=== PATIENT | female | born 1950 | race Caucasian/White ===

== ENCOUNTER → 2016-04-20 | Outpatient (CLI) | payer BC ==
--- NOTE | 2016-04-20 14:13 | MA ---
Diagnostic Digital Left Mammography Clinical History: 65-year-old female whose mother had breast cancer at age 69. The patient had a prio r remote left breast lumpectomy in the remote past, and presents for six-month reevaluation of BI-RAD S Category 3 findings. Technique: Digital CC, MLO and exaggerated craniocaudal views of the left breast, as well as spot com pression MLO and craniocaudal views were submitted and compared to previous studies dated October 01, September 19, 2015, and July 31, 2014. More remote studies from [place] are not available for comparis on. A curvilinear marker has been placed over the benign lumpectomy site in the superior left breast. Additionally, this examination was processed by the [employer] computer-aided detection system. Breast Density: Type C. CAD Evaluation: Reviewed. Findings: The fibroglandular pattern is stable, with no focal neodensity or progressive architectural change. There is some persistent postoperative fibrosis in the superior left breast, which is stable -to-slightly less conspicuous, and has an appearance similar to a study in 2014. There are no new agustin picious clustered microcalcifications. Benign-appearing left axillary lymph nodes are seen. Dr. Jesús Chatterjee has also reviewed this case, and concurs with the findings. The patient should return i n September 2016 for routine bilateral screening mammography, unless otherwise clinically indicated. Impression: Continued stability of BI-RADS Category 3 findings. Recommendation: Routine annual mammographic screening in September 2016. The patient should return in [facility].
== END ==
LOC: CIMAGING 13:05
PROVIDERS: ATTEND Nurse Practitioner
DX: Z12.39 Encounter for other screening for malignant neoplasm of breast (principal); Z80.3 Family history of malignant neoplasm of breast
CPT/HCPCS: G0206

== ENCOUNTER → 2016-06-04 | Outpatient (CLI) | payer BC | LOC: CIMAGING 11:59 | PROVIDERS: ATTEND Nurse Practitioner | DX: M19.011 Primary osteoarthritis, right shoulder (principal) | CPT/HCPCS: 73030-PO ==

== ENCOUNTER → 2016-10-20 | Outpatient (CLI) | payer BC | LOC: CIMAGING 08:37 | PROVIDERS: ATTEND Nurse Practitioner | DX: Z12.31 Encounter for screening mammogram for malignant neoplasm of breast (principal); Z80.3 Family history of malignant neoplasm of breast | CPT/HCPCS: G0202 ==

== ENCOUNTER 2017-06-19 08:18 | Emergency (ER) | payer BC ==
[2017-06-19 08:26] VITALS: BP 164/101
--- NOTE | 2017-06-19 08:45 | EDPHY ---
HPI/HX/ROS/PE/MDM Narrative: CHIEF COMPLAINT: Rash HPI: The patient is a 66-year-old female with a history of scleroderma. She was hospitalized approximately 1 week ago at [facility] for an episode of atrial fibrillation. She tells me that this atrial fibrillation was apparently quite refractory and she underwent amiodarone bolus and drip followed by electrical cardioversion and at least 1 other cardiac medication that she cannot remember the name of. During her hospitalization, shortly after taking an oral version of amiodarone, she developed a pruritic rash on her chest and arms. She was kept in the hospital an additional day and told this was likely an allergic reaction to amiodarone. She was switched to Multaq which she completed a one-week course of ending yesterday. She was also started on Eliquis which she has been compliant with. She presents the emergency department today because her rash appears to have gotten worse over the last 24 hr and now involves her legs. She denies any mucous membrane involvement, denies difficulty breathing, denies fever or other symptoms. REVIEW OF SYSTEMS: Aside from elements discussed in the HPI, a comprehensive 10-point review of systems was reviewed and is negative. PMH: Includes scleroderma, atrial fibrillation SOCIAL HISTORY: Primary physician is Dr. Joshua Chan. Patient denies drug or alcohol abuse. PHYSICAL EXAM: General:Patient is alert, in no acute distress. ENT:Eyes are normal to inspection. ENT inspection normal. Neck: Normal inspection. Full range of motion. Respiratory:No respiratory distress. Breath sounds normal bilaterally. Back: Normal to inspection. No tenderness to palpation. Skin: A fine erythematous rash is present on the torso, bilateral arms and legs. There is no mucous membrane involvement. It does not involve the palms or soles. There are no discrete urticarial lesions. There are no purpura nor ecchymoses. No petechiae noted. Zapata are noted on the back and chest consistent with cardioversion pads. Rash does not appear particularly worse in these areas. Extremities: Normal appearance. Full range of motion. Neuro: Oriented x3. Normal motor function. Normal sensory function. MDM: This patient presents with a pruritic diffuse fine rash consistent with an allergic reaction. There are no signs of anaphylaxis or airway involvement. There are no signs of hematologic disorder. The etiology of the patient's likely allergic reaction is very difficult to ascertain in as the patient underwent numerous new medications and was hospitalized with a variety of new potential exposures. The fact that it continues to worsen suggests to me that it is either related to amiodarone that was possibly injected subcutaneously and still present in her system or potentially a non medication related allergic exposure. Is also possible that this represents an adverse reaction rather than official allergic reaction. In any event, I cautioned the patient about altering her medication regimen given the fact that her primary medical team is not present. I recommended that she continue her current medications and we will try a short burst of prednisone to see if this alleviates her rash. I strongly recommended she follow up with her primary doctor to ensure that there is single captain of her medical care. We discussed strict return precautions. The patient understands that the prednisone may or may not help with her rash. General Time Seen by Provider: 06/19/17 08:22 Initial Vital Signs: Initial Vital Signs Temperature (C) 37.1 C 06/19/17 08:22 Heart Rate 75 06/19/17 08:22 Respiratory Rate 16 06/19/17 08:22 Blood Pressure 164/101 H 06/19/17 08:22 O2 Sat (%) 97 06/19/17 08:22 O2 Delivery Mode Room Air Allergies/Adverse Reactions: amiodarone Allergy (Verified 06/19/17 08:25) Pt reports rash Home Medications: Medication Instructions Recorded Crestor 06/19/17 Eliquis 06/19/17 Singulair 06/19/17 Synthroid 06/19/17 predniSONE 60 mg PO DAILY 5 Days tab 06/19/17 Departure - Departure Disposition: Home, Routine, Self-Care Clinical Impression: Allergic reaction, Rash Condition: Good Instructions: Prednisone (By mouth), Urticaria (ED) Additional Instructions: Return to the ED for worsening rash, particularly involvement of your face, mucous membranes or airway. OK to use [id number] Benadryl or other allery medications as well as hydrocortisone cream. Follow-up with your primary physician on Wednesday. Referrals: NONE *PRIMARY CARE P,. [Primary Care Provider] - As per Instructions Prescriptions: predniSONE 60 mg PO DAILY 5 Days tab
== END 2017-06-19 08:49 | disposition home or self-care (01) ==
LOC: CED 08:18
DX: T78.40XA Allergy, unspecified, initial encounter (principal)

== ENCOUNTER → 2017-12-10 | Outpatient (CLI) | payer OTHER | LOC: FIMAGING 10:24 | PROVIDERS: ATTEND Nurse Practitioner | DX: Z13.820 Encounter for screening for osteoporosis (principal); M81.0 Age-related osteoporosis without current pathological fracture ==

== ENCOUNTER → 2018-01-11 | Outpatient (CLI) | payer OTHER | LOC: FIMAGING 09:47 | PROVIDERS: ATTEND Orthopaedic Surgery | DX: M17.11 Unilateral primary osteoarthritis, right knee (principal); M89.8X6 Other specified disorders of bone, lower leg; S83.101A Unspecified subluxation of right knee, initial encounter ==

== ENCOUNTER 2018-01-28 08:50 | Inpatient (IN) | payer OTHER ==
--- NOTE | 2018-01-28 05:47 | PDHPUP ---
History & Physical Update H&P update statement: This history and physical update is based on an assessment of the patient which was completed after admission or registration (within 24 hours), but prior to the surgery/procedure. H&P update: H&P reviewed & patient examined, no change in patient's condition since H&P completed
--- NOTE | 2018-01-28 07:12 | PDGENHP ---
History and Physical History and Physical: Last amended by Jeniffer Pink PA-C on 01/10/2018 at 2:50pm View Changes: Patient Name DANAE WASSERMAN (67yo, F) ID# [id number] Appt. Date/Time 01/10/2018 10:30AM 1950 Service Dept. MAIN OFFICE Provider JENIFFER PINK PA-C Insurance Med Primary: [facility] (MEDICARE REPLACEMENT/ADVANTAGE - HMO) Insurance # : [id number] Policy/Group # : [id number] Prescription: [employer] - This member could not be found in the payer's files. Please verify coverage and all member demographic information. details Chief Complaint Right CBB_discuss Right knee surgery pt is here today for a pre-op for her right knee. no new complaints. Patient's Care Team Primary Care Provider: YRIS ACOSTA WASH PLANT OPERATOR: [id number] [facility] [address], [place] [address], , Orthopedic Surgeon: FAVIO HINTON: [id number] [facility] [address], [place] [address] , , Patient's Pharmacies [facility] #[id number] (ERX): [address] [address], Ph , Vitals Ht: 5 ft 1 in 01/10/2018 10:44 am Wt: 124 lbs 01/10/2018 10:46 am BMI: 23.4 01/10/2018 10:46 am BP: 150/87 sitting R arm 01/10/2018 10:46 am Allergies Reviewed Allergies AMIODARONE: Rash (Moderate) Medications Reviewed Medications celecoxib 200 mg capsule take 2 capsules the night before surgery with dinner then one tab once daily with food for 3 weeks 01/10/18 prescribed Jeniffer Pink PA-C DILT-XR 120 mg capsule, extended release 11/02/17 entered Kira Winslow Eliquis 11/02/17 entered Kira Winslow flecainide 50 mg tablet 11/02/17 entered Kira Winslow montelukast 10 mg tablet 04/19/16 filled [facility] oxyCODONE 5 mg tablet take 1-2 tabs every 4 hours as needed for pain 01/10/18 prescribed Jeniffer Pink PA-C rosuvastatin 10 mg tablet 01/20/17 filled [facility] Synthroid 100 mcg tablet 01/26/17 filled [facility] zaleplon 10 mg capsule 01/10/18 entered Mag[facility] Souza Vaccines None recorded. Problems Reviewed Problems No known problems Shoulder pain - Onset: 06/18/2016, Right Tibialis posterior tendinitis - Onset: 11/05/2017, Left Pes planus - Onset: 11/05/2017, Bilateral Hammer toe - Onset: 11/05/2017, Left Family History Reviewed Family History Father - No current problems or disability (onset age: 38) ( age: 69) - RA/Cancer - Diabetes mellitus - Malignant neoplastic disease - Disorder of back Mother - No current problems or disability (onset age: 40) ( age: 79) - Diabetes/ Cancer - Arthritis - Malignant neoplastic disease - Osteoarthritis - Rheumatoid arthritis Social History Reviewed Social History Smoking Status: Never smoker Non-smoker Occupation: Retired Chewing tobacco: none Alcohol intake: Occasional Alcohol-years of use: 40 Caffeine intake: Occasional Exercise level: Heavy Sporting activities: ski, swim, weights, pickleball, hike Hand Dominance: Right Education: 4 Year College Live alone or with others?: with others Surgical History Reviewed Surgical History Orthopaedic Surgery - 03/15/2006 - Left hamstring re-attached Orthopaedic Surgery - 03/15/2002 - Left foot bunion Orthopaedic Surgery - 03/15/2001 - Right foot bunion Orthopaedic Surgery - 03/15/1983 - Right knee scope [employer]ER History (not configured) Obstetric History None recorded. Past Pregnancies None recorded. Past Medical History Reviewed Past Medical History Anemia: Y Arthritis: Y Elevated Cholesterol: Y Osteoporosis: Y Sleep Apnea: Y Thyroid Problems: Y Urinary Tract Infection: Y Screening None recorded. HPI Joesph knee HPI Reported by patient. Location of symptoms: Right knee Symptoms: Pain; Decreased ROM; Instability Severity: moderate Duration: 5+ years Onset: acute Exacerbated by: Walking; Physical activity; performs with symptoms Alleviated by: activity modifications; NSAIDs; PT/OT; cortisone injection Associated Symptoms: no numbness; swelling; instability Previous Surgery: none Prior studies: none Previous Injections: helped temporarily; helped significantly Previous PT: none Work Related: no Notes: patient had many questions regarding surgery. All were addressed today. ROS ROS as noted in the HPI Physical Exam Patient is a 67-year-old female. Constitutional: General Appearance: healthy-appearing, NAD, and normal body habitus. Gait and Station: Appearance: ambulates with no assitive devices and limp. Cardiovascular System: Arterial Pulses Right: dorsalis pedis normal and posterior tibialis normal. Edema Right: no edema. Varicosities Right: no varicosities and capillary refill test normal. Lymph Nodes: Inspection/Palpation Right: no popliteal LAD. Knees: Inspection Right: no induration, warmth, erythema, or tibial torsion; swelling and genu varum deformity; and normal axial alignment. Bony Palpation Right: no tenderness of the medial femoral condyle, the adductor tubercle, or the lateral joint line and tenderness of the lateral wall trochlear groove, the medial wall trochlear groove, and the medial joint line. Soft Tissue Palpation Right: no tenderness of the lateral patellar retinaculum, the medial patellar retinaculum, the prepatellar bursa, the patellar tendon, the fat pad, the medial collateral ligament, the pes anserinus, the saphenous nerve, the iliotibial tract, the lateral collateral ligament, the biceps femoris tendon, or the gastrocnemius and tenderness of the popliteal fossa. Active Range of Motion Right: crepitus and pain at extreme limits of range and normal, flexion normal, and extension normal. Stability Right: no laxity or subluxation, ligamentous instability medial with valgus stress at 20-30 deg. grade 1 and anterior drawer sign positive, and posterior drawer sign negative. Strength Right: no hamstring weakness or quadriceps weakness and flexion 5/5 and extension 5/5. Skin: Right Lower Extremity: normal. Neurologic: Sensation on the Right: T12 normal, L1 normal, L2 normal, L3 normal , L4 normal, L5 normal, and S1 normal. Psychiatric: Orientation: oriented to time, place, and person. Mood and Affect: normal mood and affect and active and alert. Heart Rate And Rhythm (normal) heart rate and rhythm. Lungs respirations unlabored. Assessment / Plan Right knee OA Previous xrays were reviewed today reveal severe DJD Discussed operative and non-operative interventions for diagnosis of knee arthritis with patient. Recommend Right TKA for treatment. Discussed risks and benefits of operative intervention including but not limited to bleeding, infection, need for further surgery, blood clots, blood clots going to the lungs and rare perioperative complications including stroke, heart attack and . Patient understands risks and wishes to proceed. Informed consent was obtained today Postoperative medications were written today including resuming eliquis for VTE prophylaxis postop Right TKAscheduled received drip pumper letter low risk, still awaiting CBC and CT. comorbidites: afib, scleroderma, hypothyroidism, osteoarthritis and osteoporosis reaction to percocet was fogginess of mind. patient will discuss with Dr. Jaramillo drip pumper regarding celebrex still awaiting PCP letter stop eliquis one week prior to surgery 1. Acute postoperative pain G89.18: Other acute postprocedural pain 2. Prophylactic anticoagulation given Z76.89: Persons encountering health services in other specified circumstances celecoxib 200 mg capsule - take 2 capsules the night before surgery with dinner then one tab once daily with food for 3 weeks Qty: 23 capsule(s) Refills : 0 Pharmacy: [facility] #[id number] Note to Pharmacy: no refills, patient must contact provider first 3. Osteoarthritis of right knee joint M17.11: Unilateral primary osteoarthritis, right knee BMP, BLOOD 4. Chronic pain syndrome G89.4: Chronic pain syndrome oxycodone 5 mg tablet - take 1-2 tabs every 4 hours as needed for pain Qty: 84 tablet(s) Refills: 0 Pharmacy: [facility] #[id number] Return to Office Serafin Pink M.D. for Surgery 75 at Surgery on 01/28/2018 at 11:15 AM Jeniffer Pink PA-C for Surgery 75 at Surgery on 01/28/2018 at 11:15 AM Aliyah Torres PT, DPT for OT/PT New Eval at PT on 02/07/2018 at 01:00 PM Aliyah Torres PT, DPT for OT/PT Follow-Up at PT on 02/09/2018 at 01:00 PM Aliyah Torres PT, DPT for OT/PT Follow-Up at PT on 02/14/2018 at 01:00 PM Aliyah Torres PT, DPT for OT/PT Follow-Up at PT on 02/16/2018 at 01:00 PM Jeniffer Pink PA-C for Post Op Visit at MAIN OFFICE on 02/17/2018 at 10:45 AM Aliyah Torres PT, DPT for OT/PT Follow-Up at PT on 02/21/2018 at 01:00 PM lAiyah Torres PT, DPT for OT/PT Follow-Up at PT on 02/23/2018 at 01:00 PM Serafin Pink M.D. for Post Op Visit at MAIN OFFICE on 03/03/2018 at 11 :45 AM Serafin Pink M.D. for Post Injection 15 at MAIN OFFICE on 04/14/2018 at 10:45 AM Amendment Sign-Off Encounter signed-off by Jeniffer Pink PA-C, 01/10/2018. Encounter performed and documented by Jeniffer Pink PA-C Encounter reviewed & signed by Jeniffer Pink PA-C on 01/10/2018 at 11:26am Amendment closed by Jeniffer Pink PA-C on 01/10/2018 at 2:50pm There is not enough information to calculate an E&M code
[~2018-01-28 08:50] MED LIST: ROPIVACAINE 0.2% 80 MG, EPINEPHrine 0.2 MG, KETOROLAC TROMETHAMINE 30 MG in SYRINGE 0 ML IU ONE; TRANEXAMIC ACID 3,000 MG in NS (SYRINGE) 50 ML IRR ONE
[2018-01-28] MEDS ORDERED: ACETAMINOPHEN 325 MG TAB PO ONE (08:56)
[2018-01-28] MEDS ORDERED: ceFAZolin 2 GM/DEXTROSE 100 ML IV ONE (08:56)
[2018-01-28] MEDS ORDERED: FAMOTIDINE 20 MG TAB PO ONE (08:56)
[2018-01-28] MEDS ORDERED: DEXAMETHASONE 4 MG/ML VIAL IVP ONE (08:56)
[2018-01-28] MEDS ORDERED: LR 1,000 ML IV ONE (08:58)
[2018-01-28] MEDS ORDERED: TRANEXAMIC ACID 3,000 MG/50 ML BAG IRR ONE (09:08)
--- NOTE | 2018-01-28 09:55 | PDANEPAE ---
ANE History of Present Illness right knee OA ANE Past Medical History - Cardiovascular History Hx Hypertension: No Hx Arrhythmias: Yes Hx Chest Pain: No Hx Coronary Artery / Peripheral Vascular Disease: No Hx CHF / Valvular Disease: No Hx Palpitations: No Cardiovascular History Comment: hyperlipidemia. [facility] follows pt - Pulmonary History Hx COPD: No Hx Asthma/Reactive Airway Disease: No Hx Recent Upper Respiratory Infection: No Hx Oxygen in Use at Home: No Hx Sleep Apnea: No Sleep Apnea Screening Result - Last Documented: Positive Pulmonary History Comment: jigar positive- uses oral appliance - Neurologic History Hx Cerebrovascular Accident: No Hx Seizures: No Hx Dementia: No - Endocrine History Hx Diabetes: No Endocrine History Comment: hypothyroidism - Renal History Hx Renal Disorders: No - Liver History Hx Hepatic Disorders: No - Neurological & Psychiatric Hx Hx Neurological and Psychiatric Disorders: No - Cancer History Hx Cancer: No - Congenital Disorder History Hx Congenital Disorders: No - GI History Hx Gastrointestinal Disorders: Yes Gastrointestinal History Comment: hx of colon resection for vulvulus - Other Health History Other Health History: wears glasses. left ankle tendonitis. scleroderma. raynauds phenomenon - Chronic Pain History Chronic Pain: Yes (right knee, left ankle tendonitis) - Surgical History Prior Surgeries: c-sections x3. appy. colon resection- removed half of colon. hamstring reattachment- left. bilateral bunionectomy. right knee scope ANE Review of Systems Review of Systems: - Exercise capacity METS (RN): 4 METS ANE Patient History - Allergies Allergies/Adverse Reactions: amiodarone Allergy (Verified 01/13/18 12:46) Rash latex Allergy (Verified 01/13/18 13:06) - Home Medications Home medications: home medication list seen and reviewed Home Medications: Apixaban [Eliquis] 5 mg PO BID 06/19/17 [Last Taken 01/21/18] Levothyroxine [Synthroid 100 mcg (*)] 100 mcg PO DAILY06 06/19/17 [Last Taken ] Montelukast Sodium [Singulair 10 mg (*)] 10 mg PO DAILY@1800 PRN 06/19/17 [Last Taken 01/07/18] Rosuvastatin Calcium [Crestor 10mg (RX)] 10 mg PO HS 06/19/17 [Last Taken ] Calcium Carbonate [Oyster Shell Calcium 500 mg (*)] 500 mg PO DAILY 01/12/18 [ Last Taken 01/14/18] Diltiazem HCl [Cartia Xt] 120 mg PO DAILY 01/12/18 [Last Taken 01/27/18] Flecainide Acetate 50 mg PO BID 01/12/18 [Last Taken 01/28/18] Zaleplon [ZALEPLON] 10 mg PO HS 01/12/18 [Last Taken 01/27/18] - NPO status NPO Since - Liquids (Date): 01/28/18 NPO Since - Liquids (Time): 07:30 NPO Since - Solids (Date): 01/27/18 NPO Since - Solids (Time): 20:00 - Smoking Hx Smoking Status: Never smoked - Family Anes Hx Family Hx Anesthesia Complications: none ANE Labs/Vital Signs - Vital Signs Blood Pressure: 158/85 Heart Rate: 81 Respiratory Rate: 16 O2 Sat (%): 98 Height: 154.94 cm Weight: 55.792 kg ANE Physical Exam - Airway Neck exam: FROM Mallampati Score: Class 2 Mouth exam: normal dental/mouth exam - Pulmonary Pulmonary: no respiratory distress - Cardiovascular Cardiovascular: regular rate and rhythym - ASA Status ASA Status: III ANE Anesthesia Plan Anesthesia Plan: spinal Regional Anesthesia: adductor canal FNB Urgent/Emergent Case: Marissa warner completed preop but documented later for safe timely pt care
[2018-01-28] MEDS ORDERED: PROPOFOL/EMULSION 500 MG/50 ML BOTTLE IV ONE (09:57)
[2018-01-28] MEDS ORDERED: LIDOCAINE 2% 5 ML SDV ONE (09:58)
[2018-01-28] MEDS ORDERED: MIDAZOLAM 2 MG/2 ML VIAL IVP ONE (11:06)
[2018-01-28] MEDS ORDERED: MIDAZOLAM 2 MG/2 ML VIAL ONE (11:12)
[2018-01-28] MEDS ORDERED: BUPIVACAINE/DEXTROSE 7.5MG/ML 2 ML SPINAL AMP SP ONE (11:23)
[2018-01-28] MEDS ORDERED: ROPIVACAINE HCL 150 MG/30 ML INJ ONE (11:33)
[2018-01-28] MEDS ORDERED: HYDROCODONE/APAP 5/325 TAB PO PRN (12:05)
[2018-01-28] MEDS ORDERED: fentaNYL 100 MCG/2 ML INJ IVP PRN (12:05)
[2018-01-28] MEDS ORDERED: oxyCODONE IR 5 MG TAB PO PRN (12:05)
[2018-01-28] MEDS ORDERED: ALBUTEROL 3 ML DEYVIAL IH PRN (12:05)
[2018-01-28] MEDS ORDERED: NALOXONE HCL 0.4 MG/ML INJ IVP PRN (12:05)
[2018-01-28] MEDS ORDERED: ONDANSETRON 4 MG/2 ML VIAL IVP PRN ×2 (12:05→13:00)
[2018-01-28] MEDS ORDERED: LR 500 ML IV PRN (12:05)
[2018-01-28] MEDS ORDERED: ACETAMINOPHEN 500 MG TAB PO PRN (12:05)
--- NOTE | 2018-01-28 12:05 | POSTANESTH ---
Post Anesthetic Evaluation Cardiovascular Status: Normal, Stable Respiratory Status: Normal, Stable Level of Consciousness/Mental Status: Can Participate in Eval, Alert and Oriented Pain Control: Adequate, Prn Tx Ordered Nausea/Vomiting Control: Adequate, Prn Tx Ordered Complications Possibly Related to Anesthesia: None Noted
[2018-01-28] MEDS ORDERED: ePHEDrine SULFATE 25 MG/5 ML SYR ONE (12:31)
[2018-01-28] MEDS ORDERED: BISACODYL 10 MG SUPP PR PRN (13:00)
[2018-01-28] MEDS ORDERED: DIPHENOXYLATE/ATROPINE LOMOTIL 1 TAB PO PRN (13:00)
[2018-01-28] MEDS ORDERED: diphenhydrAMINE 25 MG CAP PO PRN (13:00)
[2018-01-28] MEDS ORDERED: LACTULOSE 20 GM/30 ML UDCUP PO PRN (13:00)
[2018-01-28] MEDS ORDERED: LR 1,000 ML IV SCH (13:00)
[2018-01-28] MEDS ORDERED: ONDANSETRON DISINTEGRATING 4 MG TAB PO PRN (13:00)
[2018-01-28] MEDS ORDERED: TEMAZEPAM 15 MG CAP PO PRN (13:00)
[2018-01-28] MEDS ORDERED: METOCLOPRAMIDE 10 MG/2 ML VIAL IVP PRN (13:00)
[2018-01-28] MEDS ORDERED: PROMETHAZINE HCL 25 MG/ML INJ IVP PRN (13:00)
[2018-01-28] MEDS ORDERED: POLYETHYLENE GLYCOL 3350 17 GM PKT PO PRN (13:00)
[2018-01-28] MEDS ORDERED: MAGNESIUM HYDROXIDE 30 ML UDCUP PO PRN (13:00)
[2018-01-28] MEDS ORDERED: PROMETHAZINE HCL 25 MG SUPPR PR PRN (13:00)
--- NOTE | 2018-01-28 13:00 | POSTOPPROG ---
Post Op Note Date of Operation: 01/28/18 Surgeon: Eyal Garcia Patent Clerk: kenyetta garcia PA-C Anesthesiologist: dr. hernandez Anesthesia: Spinal, Other (Specify) (adductor canal block) Pre-op Diagnosis: right knee OA Post-op Diagnosis: same Indication: right knee pain Procedure: R TKA robot assisted, sensor assisted Findings: severe knee OA Inf/Abcess present in the surg proc area at time of surgery?: No EBL: 50-100
--- NOTE | 2018-01-28 14:20 | PDMN ---
Medical Necessity Medical necessity: Pt meets inpt criteria per MD order and [facility], Knee Arthroplasty, Total, A-2 days. 67 y/o w/R knee OA admitted for R TKA and post- op care. Pt w/comorbidities including scleroderma, osteoporosis, hypothyroidism , A fib, ASA 3.
[2018-01-28] MEDS: ACETAMINOPHEN 325 MG TAB PO SCH ×2 (16:19→23:59)
[2018-01-28] MEDS: oxyCODONE IR 5 MG TAB PO PRN (16:21)
[2018-01-28] MEDS: CYCLOBENZAPRINE 10 MG TAB PO PRN (18:31)
[2018-01-28] MEDS: ceFAZolin 2 GM/DEXTROSE 100 ML IV SCH (19:32)
[2018-01-28] MEDS: SENNOSIDES/DOCUSATE SODIUM TAB PO SCH (20:25)
[2018-01-28] MEDS: FAMOTIDINE 20 MG TAB PO SCH (20:26)
[2018-01-28] MEDS ORDERED: ROSUVASTATIN CALCIUM 10 MG TAB PO SCH (21:00)
[2018-01-28] MEDS ORDERED: ZALEPLON 10 MG PO SCH (21:00)
[2018-01-28] MEDS: FLECAINIDE ACETATE 100 MG TAB PO SCH (21:55)
[2018-01-29] MEDS: ceFAZolin 2 GM/DEXTROSE 100 ML IV SCH (02:52)
[2018-01-29] MEDS: ACETAMINOPHEN 325 MG TAB PO SCH (05:45)
[2018-01-29] MEDS ORDERED: LEVOTHYROXINE 100 MCG TAB PO SCH (06:00)
[2018-01-29 07:06] VITALS: BP 113/70
[2018-01-29] MEDS ORDERED: APIXABAN 5 MG TAB PO SCH (09:00)
[2018-01-29] MEDS ORDERED: DILTIAZEM CD 120 MG CAP PO SCH (09:00)
[2018-01-29] MEDS: SENNOSIDES/DOCUSATE SODIUM TAB PO SCH (09:49)
[2018-01-29] MEDS: oxyCODONE IR 5 MG TAB PO PRN (09:50)
[2018-01-29] MEDS: CYCLOBENZAPRINE 10 MG TAB PO PRN (09:51)
[2018-01-29] MEDS: FLECAINIDE ACETATE 100 MG TAB PO SCH (09:52)
[2018-01-29] MEDS: FAMOTIDINE 20 MG TAB PO SCH (09:52)
--- NOTE | 2018-01-29 11:05 | SOAPPROG ---
SOAP Progress Note Assessment/Plan: Assessment: Patient is doing well POD 1 s/p R TKA Pain management: pain is well controlled on oral pain meds. VTE ppx: recommend resuming eliquis, cont KATIE and SCDs Anemia: level is expected initially postop. Asymptomatic. Continue to monitor D/c planning: patient has done much better than anticipated. BP well controlled , HR WNL, pain is well controlled, patient is eager for discharge if possible due to snow. d/c to home today pending release from PT spasm: patient has had relief with flexeril, will send script to patient's pharmacy. Plan: 01/29/18 11:03 Subjective: patient is doing well today, denies SOB, chest pain and N/V. Objective: Vital Signs Temp Pulse Resp BP Pulse Ox 36.6 C 76 16 113/70 97 01/29/18 07:05 01/29/18 07:05 01/29/18 07:05 01/29/18 07:05 01/29/18 07:05 Laboratory Results 01/29/18 04:20 01/28/18 01/29/18 01/30/18 05:59 05:59 05:59 Intake Total 1755 385 Output Total 330 Balance 1425 385 RLE: incision dressing is clean and dry, NVI, +pf/df ICD10 Worksheet Patient Problems: Problems Problem Status Onset Primary localized osteoarthritis of right knee Acute
--- NOTE | 2018-01-29 11:09 | ASMTLACE ---
LACE Length of stay for Answers: 2 days current admission Acuity / Level of Answers: Yes Care: Did the patient have an inpatient admission? Comorbidities - select Answers: Opioid dependence all that apply / Chronic pain Other Notes: HLD; Hypothyroidism # of Emergency department Answers: 0 visits in the last 6 months Score: 10 Date Signed: 01/29/2018 11:08 AM Electronically Signed By:DUANE Woodward
--- NOTE | 2018-01-29 11:34 | GDS ---
ADMISSION DIAGNOSIS: Right knee osteoarthritis. DISCHARGE DIAGNOSIS: Right knee osteoarthritis. PROCEDURE: Right total knee arthroplasty, robotic assisted. VTE PROPHYLAXIS: Recommend patient resume Eliquis. BRIEF DESCRIPTION OF HOSPITAL STAY: Patient was admitted for an elective joint arthroplasty. The pa cris tolerated the procedure well and has passed physical therapy. The patient was given appropriat e antibiotic prophylaxis and venous thromboembolism prophylaxis. The patient's pain was well control led on oral pain medication, patient was holding down food, and had urinated. Decision was made to d ischarge the patient. The patient was given post-operative prescriptions pre-operatively. PLAN: To please follow up as scheduled with Dr. Pink's office 02/17 at 10:45. /[id number]/MODL
--- NOTE | 2018-01-30 08:44 | GOP ---
DATE OF OPERATION: 01/28/2018 SURGEON: Victoria Pink MD [employer] [facility] OPERATOR: Jeniffer Pink, CESILIA. ANESTHESIA: Spinal. PREOPERATIVE DIAGNOSIS: Right knee osteoarthritis. POSTOPERATIVE DIAGNOSIS: Right knee osteoarthritis. PROCEDURE PERFORMED: Right total knee arthroplasty with computer navigation, robotic assist. FINDINGS: ESTIMATED BLOOD LOSS: 30 cc. INDICATIONS: The patient is a 67-year-old female with severe and progressive pain and deformity of t he right knee unresponsive to conservative care. The risks and benefits of surgical intervention wer e explained in detail. DESCRIPTION OF PROCEDURE: The patient was brought to the operative room and placed on the table in t he supine position. Spinal anesthesia was induced without difficulty. A pneumatic tourniquet was appl ied about the right proximal thigh, and the leg was prepped and draped in a sterile fashion. The leg dalton was applied. After exsanguination by elevation the tourniquet was inflated to 250 mmHg. Incision was made anterior medial from the tibial tuberosity to a point 2 cm proximal to the superior pole of the patella. Medial parapatellar arthrotomy was carried out from the superior pole of the pa tella and posteriorly in line with the fibers of the Type II VMO. The medial collateral ligament was elevated and the infrapatellar fat pad was resected. The patella was everted and the articular surface was excised. A 32 mm patellar button was placed. Attention was turned first to the distal aspect of the femur. After exposure of the femur, 2 half pi ns were placed for fixation of the femoral array. In a similar fashion, 2 pins were placed anteromed ial on the tibia for fixation of the tibial array. External land marking and registration of the hip center was performed without difficulty. Internal femoral and tibial registrations were carried out without difficulty and the femoral and tibial checkpoints were placed and verified for accuracy. Attention was turned to the femur. The foot print for the size 3 femoral component was cut with the saw using the [employer] robotic system and verified for accuracy against the CT based plan. In a similar f ashion, the saw was used to cut the footprint for the size 4 tibial component using the [employer] system an d verified for accuracy against the CT based plan. The tibial articular surface was excised without d ifficulty, followed by the intercondylar box cut. The knee was extended and the remnants of the medial and lateral meniscus were excised. The posterior capsule was injected with ropivacaine, epinephrine and Toradol. A size 4 tibial tray was positioned . Trial reduction was then carried out. There was excellent range of motion, alignment, and stability using the 4 x 11 mm polyethylene. All trials were then removed. The joint was thoroughly irrigated and carefully dried. The press-fit c omponents were implanted. The permanent 4 x-ray 11 mm polyethylene was placed without difficulty. The tourniquet was deflated and all bleeders were coagulated. The wound was thoroughly irrigated and closed using interrupted sutures of 2-0 Vicryl for the joint capsule. The subcu was closed with 3-0 V icryl and the skin with 4-0 Monocryl. Dermabond and Steri-Strips were applied followed by a compress merly dressing. The patient was then moved from the operating room to the recovery room in good conditi on, having tolerated the procedure well. PATHOLOGY: Severe medial patellofemoral osteoarthritis. /[id number]/MODL
== END 2018-01-29 12:38 | disposition home or self-care (01) | DRG 470 ==
LOC: F3N 08:50 → OBSVTOIN 13:03 → F3N 14:42
PROVIDERS: ADMIT Orthopaedic Surgery; ATTEND Orthopaedic Surgery
DX: M17.11 Unilateral primary osteoarthritis, right knee (principal); E78.00 Pure hypercholesterolemia, unspecified; E03.9 Hypothyroidism, unspecified; D64.9 Anemia, unspecified; G47.30 Sleep apnea, unspecified; M34.9 Systemic sclerosis, unspecified; M81.0 Age-related osteoporosis without current pathological fracture; I48.91 Unspecified atrial fibrillation
CPT/HCPCS: 97110-GP; 97116-GP; 97161-GP; G8978-GP-CJ; G8979-GP-CI; G8980-GP-CI; J0171; J0690; J1100; J1885; J2250; J2704; J2795